=== PATIENT | female | born 1990 | race African-American/Black ===

== ENCOUNTER 2025-05-30 12:39 | Emergency (ER) | payer SELFPAY ==
[2025-05-30] MEDS ORDERED: Acetaminophen 500 MG TAB ONE (13:30)
== END 2025-05-30 15:26 | disposition left against medical advice (07) ==
LOC: CSHERS 12:39
DX: M54.50 Low back pain, unspecified (principal); M54.6 Pain in thoracic spine; V89.9XXA Person injured in unspecified vehicle accident, initial encounter; Y92.828 Other wilderness area as the place of occurrence of the external cause
CPT/HCPCS: 96372; 99283; J2270; Q0162

== ENCOUNTER 2025-09-10 10:45 | Emergency (ER) | payer OTHER, SELFPAY ==
[2025-09-10] MEDS ORDERED: HYDROcodone/Acetaminophen 5/325 mg Tablet ONE (12:57)
== END 2025-09-10 13:00 | disposition home or self-care (01) ==
LOC: CSHERS 10:45
DX: T85.848A Pain due to other internal prosthetic devices, implants and grafts, initial encounter (principal)

== ENCOUNTER 2025-10-27 11:06 | Emergency (ER) | payer OTHER, SELFPAY ==
[2025-10-27] MEDS ORDERED: Iopamidol 300 61% 100 ML VIAL FS ONE (11:52)
[2025-10-27] MEDS ORDERED: Ondansetron PF 4 MG/2 ML Vial ONE (12:06)
[2025-10-27 12:26] LABS: #Basophils 0.03 10x3/uL (0.0-0.2); #Eosinophils Less than 0.03 10x3/uL (0.0-0.5); #Monocytes 0.99 10x3/uL (0.0-1.1); #Neutrophils 7.41 10x3/uL (1.5-8.4); %Basophils 0.3 % (0.0-2.0); %Eosinophils 0.1 % (0.0-6.0); %Lymphocytes 18.1 % (18.0-47.0); %Monocytes 9.6 % (0.0-10.0); %Neutrophils 71.5 % (40.0-75.0); Hematocrit 41.4 % (34.9-44.5); Hemoglobin 13.5 g/dL (12.0-15.5); Mean Corpuscular Hemoglobin 28.2 pg (27.0-33.0); Mean Corpuscular Volume 86.4 fL (81.6-98.3); Platelet Count 554 10x3/uL (150-450); Red Blood Cell (RBC) Count 4.79 10x6/uL (3.90-5.03); White Blood Cell (WBC) Count 10.36 10x3/uL (3.5-10.5)
[2025-10-27 12:42] LABS: ALT (SGPT) 62 U/L (Less than 34); AST (SGOT) 65 U/L (11-34); Albumin 4.4 g/dL (3.1-4.5); Alkaline Phosphatase 97 U/L (40-110); Anion Gap 17 mmol/L (10-20); BUN (Urea Nitrogen) 14 mg/dL (7.0-18.7); Bilirubin, Total 0.8 mg/dL (0.3-1.2); Calc. Creatinine Clearance 0 mL/min (70-130); Calcium 9.7 mg/dL (7.8-10.44); Carbon Dioxide 24 mmol/L (22-29); Chloride 101 mmol/L (98-107); Globulin 4.3 g/dL (2.4-3.5); Glucose 128 mg/dL (70-105); Potassium 3.2 mmol/L (3.5-5.1); Sodium 139 mmol/L (136-145)
[2025-10-27] MEDS ORDERED: Famotidine/PF 20 mg/2ml Vial ONE (12:51)
[2025-10-27] MEDS ORDERED: Dicyclomine 20 MG TAB ONE (12:53)
[2025-10-27] MEDS ORDERED: Droperidol 5 MG/2 ML VIAL ONE (13:23)
[2025-10-27 13:44] LABS: BHCG - Serum Negative (NEGATIVE); Pregs Control Background? CLEAR/WHITE (CLR/WHITE); Pregs Control Bar Appear? YES (CONTROL BAR)
[2025-10-27 13:49] LABS: Lipase 26 U/L (8-78); Magnesium 2.3 mg/dL (1.6-2.6)
[2025-10-27 16:19] LABS: Glucose, Urine (Dipstick) Normal (Negative); Leukocyte 25 (Negative); Protein, Urine (Dipstick) 30 mg/dl (Neg-Trace); Specific Gravity, Urine 1.005 (1.005-1.030)
[2025-10-27 16:26] LABS: Cocaine Metabolite Screen Negative (Negative); THC/Cannabinoid Screen Negative (Negative); Tricyclic Screen Negative (Negative)
[2025-10-27 16:37] LABS: CAUTI Indications for Culture Pelvic or flank pain; RBC/HPF 0-3 HPF (0-3)
[2025-10-27 16:39] LABS: Bacteria/HPF 2+ HPF (None Seen); Mucous/LPF 1+ LPF (<2+)
[2025-10-27 16:40] LABS: Urine Culture Reflex No No
== END 2025-10-27 17:32 | disposition home or self-care (01) ==
LOC: CSHERS 11:06
DX: R11.2 Nausea with vomiting, unspecified (principal); R10.31 Right lower quadrant pain; R10.32 Left lower quadrant pain; Z55.9 Problems related to education and literacy, unspecified
CPT/HCPCS: 74177; 80053; 80306; 81001; 83690; 83735; 84703; 85025; 87428; 93005; 96361; 96374; 96375; 96376; J1308; J1790; J2270; J2405; Q9967